=== PATIENT | male | born 1995 | race Caucasian/White ===

== ENCOUNTER 2017-02-15 00:01 | Emergency (ER) | payer OTHER ==
[2017-02-15 00:18] VITALS: BP 158/86; PULSE 88; RESP 16; O2SAT 98
--- NOTE | 2017-02-15 02:04 | RADRPT ---
EXAM DATE/TIME: 02/15/2017 01:48 [place] COMPARISON: No previous studies available for comparison. INDICATIONS : Trauma; fall - patient hit his face against a bar and complains of jaw pain. RADIATION DOSE: 50.10 CTDIvol (mGy) MEDICAL HISTORY : None SURGICAL HISTORY : None. ENCOUNTER: Initial ACUITY: 1 day PAIN SCORE: 8/10 LOCATION: facial TECHNIQUE: Volumetric scanning of the facial bones was performed. Using automated exposure control and adjustme nt of the mA and/or kV according to patient size, radiation dose was kept as low as reasonably achiev able to obtain optimal diagnostic quality images. DICOM format image data is available electronicall y for review and comparison. FINDINGS: Left parasymphyseal mandibular fracture at noted between the left lateral incisor and canine. No othe r fractures are seen. Paranasal sinuses are well aerated. Orbits are unremarkable. CONCLUSION: 1. Left parasymphyseal mandibular fracture. Tino Garcia MD on February 15, 2017 at 2:01 Board Certified Radiologist. This report was verified electronically.
[2017-02-15 02:11] VITALS: TEMP 97.6
[2017-02-15] MEDS ORDERED: oxyCODONE/ACETAMINOPHEN 5 MG/325 MG TAB PO ONE (03:15)
[2017-02-15] MEDS ORDERED: PERC5TAB12 PO ×2 (03:48→03:54)
[2017-02-15] MEDS ORDERED: PENI500T PO ×2 (03:48→03:54)
--- NOTE | 2017-02-15 03:50 | PD ---
HPI Chief Complaint: Injury Time Seen by Provider: 01:36 Travel History International Travel<30 days: No Contact w/Intl Traveler<30days: No Traveled to known affect area: No History of Present Illness HPI Patient is a 21-year-old male presents emergency Department with complaint of left-sided jaw pain. Patient states that he had a mechanical fall, falling and hitting his chin yesterday. Since, he notes that the left canine on the mandible is loose and he has been having pain. He has not been able to tolerate anything to eat or drink, instead eating applesauce. He states that he notes mild malocclusion around the left side of the jaw primarily at the canine. [facility] Past Medical History Medical History: Denies Significant Hx Diminished Hearing: No Past Surgical History Surgical History: No Previous Surgery Social History Alcohol Use: No Tobacco Use: No (never) Substance Use: No Allergies-Medications (Allergen,Severity, Reaction): Coded Allergies: No Known Allergies (Unverified , 02/15/17) Reported Meds & Prescriptions Reported Meds & Active Scripts Active No Active Prescriptions or Reported Medications Review of Systems Except as stated in HPI: all other systems reviewed are Neg Physical Exam Narrative GENERAL: Well-appearing male in no acute distress SKIN: Focused skin assessment warm/dry. HEAD: Normocephalic. EYES: No scleral icterus. No injection or drainage. ENT: No nasal bleeding or discharge. Mucous membranes pink and moist. Left- sided tenderness to palpation to the left of midline of the jaw. The left mandibular canine is slightly loose. There does not appear to be any open hematoma, gingival bleeding to suggest fracture. NECK: Supple CARDIOVASCULAR: Regular rate and rhythm. RESPIRATORY: No accessory muscle use. MUSCULOSKELETAL: Normal gait NEUROLOGICAL: Awake and alert. Normal speech. PSYCHIATRIC: Appropriate mood and affect; insight and judgment normal. Data Data Last Documented VS Vital Signs Date Time Temp Pulse Resp B/P Pulse Ox O2 Delivery O2 Flow Rate FiO2 02/15/17 02:11 97.6 02/15/17 00:18 88 16 158/[address] Facial Bones W/O Iv Cont (02/15/17 ) Oxycodone-Acetamin 5-325 Mg (Percocet (02/15/17 03:15) MDM Medical Decision Making Medical Screen Exam Complete: Yes Emergency Medical Condition: Yes Medical Record Reviewed: Yes Differential Diagnosis 21-year-old male here with left-sided jaw pain status post trip and fall with injury to the jaw yesterday. Differential includes mandibular fracture, contusion, loose tooth. Narrative Course Patient given Percocet for pain. CT of the facial bones shows left parasymphyseal mandibular fracture. Unfortunately we do not have maxillofacial surgery on-call today so I called [facility] and spoke with Dr. Terrell Goode. Given the lack of anything that grossly open we agreed for penicillin VK, Percocet for home. Soft foods, and nothing by mouth after midnight tomorrow/Thursday night. Follow-up with Dr. Goode in his office on Thursday. Diagnosis Primary Impression: Mandibular fracture, closed Qualified Code: S02.609A - Closed fracture of left side of mandible, unspecified mandibular site, initial encounter Additional Instructions: Antibiotics as prescribed. Pain medications as prescribed. Soft foods only such as applesauce. Nothing to eat after midnight tonight, 02/15 , Thursday night. Follow-up with Dr. Terrell Goode in [place] on Thursday. Office number [phone] [place] [address] Call his office on Thursday for follow-up appointment for operative management. Bring your paperwork including the disc with you to that appointment. Med/Other Pt SpecificInfo: Prescription(s) given Scripts Oxycodone-Acetaminophen (Percocet)5-325 mg Tab1-2 Tab PO Q4H PRN (PAIN) #20 TAB Ref 0 Prov:Rashida Cr MD 02/15/17 Penicillin V Potassium 500 Mg [id number] Mg PO Q6H 7 Days Ref 0 Prov:Rashida Cr MD 02/15/17 Disposition: 01 DISCHARGE HOME Condition: Stable Rashida Cr MD Feb 15, 2017 03:50
== END 2017-02-15 06:26 | disposition home or self-care (01) ==
LOC: NEPE 00:01
DX: S02.609A Fracture of mandible, unspecified, initial encounter for closed fracture (principal); W18.00XA Striking against unspecified object with subsequent fall, initial encounter
CPT/HCPCS: 70486; 99284